=== PATIENT | female | born 1970 | race Hispanic/Latino ===

== ENCOUNTER → 2018-09-18 | Outpatient (CLI) | payer BC | LOC: MAMMO 15:31 | PROVIDERS: ATTEND Internal Medicine | DX: Z12.31 Encounter for screening mammogram for malignant neoplasm of breast (principal) | CPT/HCPCS: 77067 ==

== ENCOUNTER → 2018-10-16 | Outpatient (CLI) | payer BC ==
--- NOTE | 2018-10-17 08:49 | Diagnostic Imaging Report ---
#[id number] - MGDXLT #UNILATERAL LEFT DIGITAL DIAGNOSTIC MAMMOGRAM WITH SPOT COMPRESSION: 10/16/2018 Comparison is made to exams dated: 09/18/2018 mammogram - [facility] and 05/05/2017 mammogram - [facility]. Current study contains 4 films. The tissue of the left breast is predominantly fatty. The area of asymmetry appears to press out with focal spot compression. No significant masses, calcifications, or other findings are seen in the breast. There has been no significant interval change. IMPRESSION: BENIGN There is no mammographic evidence of malignancy. A 1 year screening mammogram is recommended. The patient will be notified by letter of the results. Gorge Salguero Jr., D.O. cw/:10/16/2018 13:14:19 Shaper Machine Hand: Chelsie BORRERO(Joseph)(M), [facility] letter sent: Normal Exam Mammogram BI-RADS: 2 Benign
== END ==
LOC: MAMMO 10:56
PROVIDERS: ATTEND Internal Medicine
DX: N64.89 Other specified disorders of breast (principal)